=== PATIENT | male | born 1995 | race African-American/Black ===

== ENCOUNTER 2019-11-14 17:43 | Emergency (ER) | payer OTHER ==
[2019-11-14 17:50] VITALS: BP 133/71
--- NOTE | 2019-11-14 18:13 | ER Document Report ---
HPI - HPI Time Seen by Provider: 11/14/19 18:01 Context: 24 y/o male presents for abdominal pain for the past two days. Pt states it has improved and he needs a work note. Denies any nausea/vomiting/diarrhea/constipation or pain at this time. Past Medical History - Social History Smoking Status: Unknown if Ever Smoked Family History: Reviewed & Not Pertinent Renal/ Medical History: Denies: Hx Peritoneal Dialysis - Immunizations Immunizations up to date: Yes Hx Diphtheria, Pertussis, Tetanus Vaccination: Yes Vertical Provider Document - CONSTITUTIONAL Agree With Documented VS: Yes Notes: GENERAL: Well-appearing, well-nourished and in no acute distress. HEAD: Atraumatic, normocephalic. EYES: Extraocular movements intact, sclera anicteric, conjunctiva are normal. NECK: Normal range of motion, supple without lymphadenopathy or JVD. ABDOMEN: Soft, nontender. No guarding, no rebound. No masses appreciated. EXTREMITIES: Normal range of motion, no pitting or edema. No clubbing or cyanosis. NEUROLOGICAL: Cranial nerves II through XII grossly intact. Normal speech, normal gait. PSYCH: Normal mood, normal affect. SKIN: Warm, Dry, normal turgor, no rashes or lesions noted. - INFECTION CONTROL TRAVEL OUTSIDE OF THE [place] IN LAST 30 DAYS: No Course - Re-evaluation Re-evalutation: 11/14/19 Nontoxic, well appearing 24 y/o male presents for abdominal pain which has since resolved. Pt is here for a work note so he may return to work today. Pt denies any nausea/vomiting/diarrhea or any pain. Abd soft, nontender. PE otherwise unremarkable. Pt given return precautions and close follow up with PCP. Pt voices understanding and agrees with plan of care. - Vital Signs Vital signs: Temp Pulse Resp BP Pulse Ox 98.0 F 65 16 133/71 H 100 11/14/19 17:47 11/14/19 17:47 11/14/19 17:47 11/14/19 17:47 11/14/19 17:47 Discharge - Discharge Clinical Impression: Abdominal pain Qualifiers: Abdominal location: generalized Qualified Code(s): R10.84 - Generalized abdominal pain Condition: Stable Disposition: HOME, SELF-CARE Instructions: Abdominal Pain ([facility]) Additional Instructions: Please take medication as prescribed. Return to ER for any worsening symptoms including nausea/vomiting, fever, abdominal pain, chest pain, shortness of breath, or any other symptoms that are concerning to you. Prescriptions: Ondansetron [Zofran Odt 4 mg Tablet] 4 mg PO Q4HP PRN #30 tab.rapdis PRN Reason: Dicyclomine HCl [Bentyl 20 mg Tablet] 20 mg PO QID #40 tablet Forms: Return to Work Referrals: BLAISE CORNEJO MD [ACTIVE STAFF] - Follow up in 3-5 days [facility] [Provider Group] - Follow up in 3-5 days
== END 2019-11-14 18:18 | disposition home or self-care (01) ==
LOC: ER 17:43
DX: R10.84 Generalized abdominal pain (principal)
CPT/HCPCS: 99281

== ENCOUNTER 2020-05-30 12:03 | Emergency (ER) | payer OTHER ==
[2020-05-30 12:10] VITALS: BP 128/68
[2020-05-30] MEDS ORDERED: AZITHROMYCIN 250 MG TABLET PO ONE (12:26)
[2020-05-30] MEDS ORDERED: CEFTRIAXONE INJ 250 MG VIAL IM ONE (12:26)
[2020-05-30] MEDS ORDERED: LIDOCAINE 1% INJ-PF (10 MG/ML) 30 ML SDV IM ONE (12:26)
--- NOTE | 2020-05-30 12:28 | ER Document Report ---
HPI - HPI Time Seen by Provider: 05/30/20 12:19 Pain Level: 1 Notes: 24-year-old male patient presents emergency department chief complaint of burning at the tip of his penis and blood in his urine. Patient denies any abdominal pain, testicular pain. He denies any fever or chills. He reports he had similar symptoms about a year ago when he was tested and had chlamydia. He reports that he thought that infection was gone. He reports he is in a monogamous relationship. - ROS Systems Reviewed and Negative: Yes All other systems reviewed and negative - URINARY Notes: Burning at tip of penis, blood in urine - REPRODUCTIVE Reproductive: DENIES: : Past Medical History - General Information source: Patient - Social History Smoking Status: Never Smoker Frequency of alcohol use: None Drug Abuse: None Family History: Reviewed & Not Pertinent Patient has homicidal ideation: No - Medical History Medical History: Negative Renal/ Medical History: Denies: Hx Peritoneal Dialysis Surgical Hx: Negative - Immunizations Immunizations up to date: Yes Hx Diphtheria, Pertussis, Tetanus Vaccination: Yes Vertical Provider Document - CONSTITUTIONAL Notes: PHYSICAL EXAMINATION: GENERAL: Well-appearing, well-nourished and in no acute distress. HEAD: Atraumatic, normocephalic. EYES: Pupils equal round extraocular movements intact, conjunctiva are normal. ENT: Nares patent NECK: Normal range of motion LUNGS: No respiratory distress Musculoskeletal: Normal range of motion NEUROLOGICAL: Normal speech, normal gait. PSYCH: Normal mood, normal affect. SKIN: Warm, Dry, normal turgor, no rashes or lesions noted. - INFECTION CONTROL TRAVEL OUTSIDE OF THE [place] IN LAST 30 DAYS: No Course - Vital Signs Vital signs: Temp Pulse Resp BP Pulse Ox 98.0 F 64 16 128/68 H 99 05/30/20 12:09 05/30/20 12:09 05/30/20 12:09 05/30/20 12:05/30/20 12:09 Discharge - Discharge Clinical Impression: Hematuria Qualifiers: Hematuria type: unspecified type Qualified Code(s): R31.9 - Hematuria, unspecified Condition: Stable Disposition: HOME, SELF-CARE Additional Instructions: Hematuria Hematuria, or blood in your urine, can be caused by minor medical problems, such as a bladder infection, or by more serious medical conditions, such as kidney stones or even tumors of the bladder or kidney. If the cause of the hematuria is known (such as a bladder infection) and can be treated, it may not need further evaluation. If the cause is not known, it will usually require further evaluation by a specialist, such as a urologist. In particular, unexplained hematuria in the older patient must be evaluated to rule out a serious condition, such as a bladder or kidney tumor. If the hematuria worsens or you are passing clots and then are unable to urinate, you should be re-evaluated. A catheter may need to be placed in the bladder to permit passage of urine. If you develop high fever, severe pain, or other new or worsening symptoms, return to the Emergency Department for re- evaluation. Your urine does not show any evidence of infection. We will call you if your chlamydia or gonorrhea test is positive. Referrals: [facility] [Outside] - Follow up as needed
[2020-05-30 12:59] LABS: APPEARANCE,URINE CLEAR; BILIRUBIN,URINE NEGATIVE (NEGATIVE); COLOR,URINE STRAW; GLUCOSE, URINE NEGATIVE (NEGATIVE); KETONES,URINE NEGATIVE (NEGATIVE); LEUKOCYTE ESTERASE,URINE NEGATIVE (NEGATIVE); NITRITE,URINE NEGATIVE (NEGATIVE); PROTEIN,URINE NEGATIVE (NEGATIVE); URINE SPECIFIC GRAVITY 1.005; UROBILINOGEN,URINE NEGATIVE mg/dL (<2.0)
[2020-05-30 14:20] LABS: CHLAM PCR NOT DETECTED (NOT DETECT)
== END 2020-05-30 13:59 | disposition home or self-care (01) ==
LOC: ER 12:03
DX: R31.9 Hematuria, unspecified (principal)
CPT/HCPCS: 99284; 96372; 87086; 81001; 87491; 87591; J3490; J0696